=== PATIENT | male | born 2000 | race Caucasian/White ===

== ENCOUNTER 2022-04-25 13:20 | Emergency (ER) | payer SELFPAY ==
[2022-04-25] MEDS ORDERED: Amoxicillin 500 MG Cap PO ONE (13:21)
[2022-04-25] MEDS ORDERED: Lidocaine 2% Viscous Solution 15 ML UD PO ONE (13:21)
[2022-04-25 13:42] VITALS: BP 126/78; PULSE 95
[2022-04-25] MEDS ORDERED: Amoxicillin 500 MG Cap ONE (14:14)
[2022-04-25] MEDS ORDERED: Lidocaine 2% Viscous Solution 15 ML UD ONE (14:14)
== END 2022-04-25 14:40 | disposition home or self-care (01) ==
LOC: DL.ED 13:20
DX: K04.7 Periapical abscess without sinus (principal); Z87.891 Personal history of nicotine dependence
CPT/HCPCS: 99282; A9270